=== PATIENT | female | born 1980 | race Caucasian/White ===

== ENCOUNTER → 2023-05-29 06:34 | Day surgery (SDC) | payer BC, SELFPAY | LOC: GI 06:34 | PROVIDERS: ATTENDING PHYSICIAN Internal Medicine Gastroenterology; FAMILY PHYSICIAN Family Medicine | DX: Z12.11 Encounter for screening for malignant neoplasm of colon (principal); Z83.719 Family history of colon polyps, unspecified | CPT/HCPCS: G0105 ==

== ENCOUNTER → 2023-08-30 19:40 | Outpatient (REF) | payer BC, SELFPAY | LOC: MRI 3T 19:40 | PROVIDERS: ATTENDING PHYSICIAN Internal Medicine Gastroenterology; FAMILY PHYSICIAN Family Medicine | DX: K76.9 Liver disease, unspecified (principal) | CPT/HCPCS: 74183; A9575 ==

== ENCOUNTER 2023-12-12 06:22 | Day surgery (SDC) | payer BC, SELFPAY ==
[2023-12-12 08:16] VITALS: BMI 33.2
[2023-12-12 08:18] VITALS: BP 110/70
[2023-12-12 08:22] VITALS: BMI 33.2
[2023-12-12 11:06] VITALS: BP 110/70
[2023-12-12 11:15] VITALS: BP 105/67
[2023-12-12 11:30] VITALS: BP 108/71
[2023-12-12 11:45] VITALS: BP 111/74
[2023-12-12 12:00] VITALS: BP 108/75
== END 2023-12-12 13:09 | disposition home or self-care (01) ==
LOC: GI 06:22
PROVIDERS: ATTENDING PHYSICIAN Internal Medicine Gastroenterology
DX: R59.0 Localized enlarged lymph nodes (principal); K31.7 Polyp of stomach and duodenum; R59.1 Generalized enlarged lymph nodes
CPT/HCPCS: 43238; 43239; 88172; 88305; 88342

== ENCOUNTER → 2024-06-12 18:53 | Outpatient (REF) | payer BC, SELFPAY | LOC: MRI 3T 18:53 | PROVIDERS: ATTENDING PHYSICIAN Internal Medicine Gastroenterology; FAMILY PHYSICIAN Family Medicine | DX: K76.89 Other specified diseases of liver (principal); D18.03 Hemangioma of intra-abdominal structures; K76.0 Fatty (change of) liver, not elsewhere classified; R93.5 Abnormal findings on diagnostic imaging of other abdominal regions, including retroperitoneum | CPT/HCPCS: 74183; A9575 ==

== ENCOUNTER → 2024-06-29 16:35 | Outpatient (REF) | payer BC, SELFPAY | LOC: RAD 16:35 | PROVIDERS: ATTENDING PHYSICIAN Internal Medicine Hematology & Oncology; FAMILY PHYSICIAN Family Medicine; OTHER PHYSICIAN Internal Medicine Endocrinology, Diabetes & Metabolism; OTHER PHYSICIAN Internal Medicine Rheumatology; REFERRING PHYSICIAN Internal Medicine Gastroenterology | DX: R59.9 Enlarged lymph nodes, unspecified (principal) | CPT/HCPCS: 70491; 71260; Q9967 ==

== ENCOUNTER → 2024-07-09 08:18 | Outpatient (REF) | payer BC, SELFPAY | LOC: RAD 08:18 | PROVIDERS: ATTENDING PHYSICIAN Nurse Practitioner Acute Care; FAMILY PHYSICIAN Family Medicine; OTHER PHYSICIAN Internal Medicine Endocrinology, Diabetes & Metabolism; OTHER PHYSICIAN Internal Medicine Rheumatology; REFERRING PHYSICIAN Internal Medicine Gastroenterology | DX: R59.9 Enlarged lymph nodes, unspecified (principal) | CPT/HCPCS: 76700 ==

== ENCOUNTER → 2025-01-15 17:19 | Outpatient (REF) | payer BC, SELFPAY | LOC: RAD 17:19 | PROVIDERS: ATTENDING PHYSICIAN Internal Medicine Hematology & Oncology; FAMILY PHYSICIAN Family Medicine | DX: R59.0 Localized enlarged lymph nodes (principal) | CPT/HCPCS: 74160; Q9967 ==